=== PATIENT | male | born 1990 | race Caucasian/White ===

== ENCOUNTER 2017-07-12 08:17 | Outpatient (CLI) | payer BC ==
[2017-07-12 09:23] LABS: #Lymphocytes 1.7 thou/uL (1.20-3.40); #Monocytes 0.9 thou/uL (0.11-0.59); #Neutrophils 6.2 thou/uL (1.40-6.50); %Basophils 0.2 % (0.0-1.0); %Eosinophils 0.4 % (0.0-10.0); %Lymphocytes 19.4 % (21.0-51.0); %Monocytes 10.3 % (0.0-10.0); %Neutrophils 69.7 % (42.0-75.0); Hemoglobin 15.8 g/dL (14.0-18.0); Mean Corpuscular HGB CONC 33.8 g/dL (32.0-36.0); Mean Corpuscular Hemoglobin 30.9 pg (27.0-31.0); Mean Corpuscular Volume 91.3 fl (80.0-94.0); Mean Platelet Volume 8.7 fL (7.4-10.4); Platelet Count 217 thou/uL (130-400); RBC Distribution Width 11.8 % (11.5-14.5); White Blood Cell (WBC) Count 8.9 thou/uL (4.8-10.8)
[2017-07-12 09:39] LABS: Anion Gap 14 mmol/L (10-20); BUN (Urea Nitrogen) 15 mg/dL (8.9-20.6); Calc. Creatinine Clearance 0 mL/min (70-130); Carbon Dioxide 22 mmol/L (22-29); Chloride 106 mmol/L (98-107); Estimated GFR-MDRD Greater than 90; Glucose 122 mg/dL (70-105); Potassium 3.8 mmol/L (3.5-5.1); Sodium 138 mmol/L (136-145)
== END 2017-07-12 08:18 | disposition home or self-care (01) ==
LOC: LABBT 08:17
PROVIDERS: ATTEND Surgery
DX: Z01.812 Encounter for preprocedural laboratory examination (principal); K43.9 Ventral hernia without obstruction or gangrene
CPT/HCPCS: 80048; 85025

== ENCOUNTER 2017-07-20 09:57 | Day surgery (SDC) | payer BC ==
[2017-07-12 08:45] VITALS: BMI 36.8
[2017-07-20] MEDS ORDERED: Ondansetron HCl/PF 4 MG/2 ML Vial ONE ×2 (10:28→14:54)
[2017-07-20] MEDS ORDERED: Fentanyl 100 MCG/2 ML VIAL ONE ×4 (10:28→15:02)
[2017-07-20] MEDS ORDERED: Midazolam HCl 2 mg/2 ml Vial ONE (10:28)
[2017-07-20] MEDS ORDERED: Lidocaine 2% Jelly 5 ML TUBE ONE (10:49)
[2017-07-20] MEDS ORDERED: Bupivacaine/Epinephrine 0.25% 30 ML VIAL ONE (11:39)
[2017-07-20] MEDS ORDERED: CEFAZOLIN/Water 2 GM/20 ML SYRINGE ONE (11:43)
[2017-07-20] MEDS ORDERED: Meperidine HCl/PF 25 MG/ML VIAL ONE (14:09)
[2017-07-20] MEDS ORDERED: Glycopyrrolate 0.2 MG/ML 5 ML SYRINGE ONE (14:54)
[2017-07-20] MEDS ORDERED: Lidocaine 1% PF 5 ML VIAL ONE (14:54)
[2017-07-20] MEDS ORDERED: PROPOFOL 200 MG/20 ML VIAL ONE (14:54)
[2017-07-20] MEDS ORDERED: Dexamethasone 20 MG/5 ML VIAL ONE (14:54)
[2017-07-20] MEDS ORDERED: Meperidine HCl/PF 25 MG/ML VIAL IV PRN (15:08)
[2017-07-20] MEDS ORDERED: Non-Formulary Medication 1 EACH PO PRN (15:08)
[2017-07-20] MEDS ORDERED: Promethazine HCl 25 MG/ML VIAL IM/IV PRN (15:08)
[2017-07-20] MEDS ORDERED: Ondansetron HCl/PF 4 MG/2 ML Vial IVP PRN (15:08)
--- NOTE | 2017-07-20 18:26 | OP ---
DATE OF PROCEDURE: 07/20/2017 PREOPERATIVE DIAGNOSIS: Ventral hernia. POSTOPERATIVE DIAGNOSIS: Ventral hernia. PROCEDURE PERFORMED: Da Greta laparoscopic ventral hernia repair with mesh, [address] SURGEON: Ehsan Linares M.D. ANESTHESIA: General. ESTIMATED BLOOD LOSS: Minimal. COMPLICATIONS: None. TECHNIQUE: The patient was taken to the operating room and placed supine on the table. After genera l anesthetic was obtained, the Fontaine catheter was placed, the abdomen was shaved, prepped and draped in a sterile fashion. Left subcostal 5-mm Optiview trocar was placed in the usual fashion and high-f low pneumoperitoneum was obtained. Left and right upper abdominal 8-mm robot trocars were placed. T he 5-mm trocar was replaced to an 11-mm long balloon applied medical trocar. All ports were docked t o the robot. Surgeon goes to the console. An 8-cm round Ventralight mesh with the nonadherence side labeled using the skin marker was rolled after moistened and placed into the abdominal cavity. Ther e were some omental adhesions to the ventral hernia that were taken down sharply and with cautery. T he falciform ligament was taken superiorly in order for mesh placement. The posterior peritoneum was opened, exposing the posterior fascia circumferentially around the defect, 0 V-Loc is used to close the defect primarily in a transverse fashion. A bite was obtained of the posterior umbilical skin in order to pull it back down again. The needle for this suture was left in the abdomen. The previous ly cut mesh and labeled was placed up against the posterior abdominal wall. The mesh side was placed against the posterior fascia. The nonadherence side was left on the inferior aspect. This mesh was held and centered over the closure using the needle for the fascial closure. A 3-0 V-Loc is used to affix the mesh to the posterior fascia, starting at the 3 o'clock position and sewn circumferentiall y, two 3-0 V-Loc were used to do this. The sutures were overlapped at their ends and then cut. All three needles were removed from the abdomen. No injury to any intraabdominal structures. All port s ites were infiltrated using local anesthetic and removed under direct visualization without bleeding. Pneumoperitoneum was let down. The incisions were closed using 4-0 Monocryl and Dermabond. The pa tient was en route to recovery in stable condition. All instrument counts, needle counts and lap cou nts were correct.
== END 2017-07-20 17:23 | disposition home or self-care (01) ==
LOC: SDC 09:57
PROVIDERS: ATTEND Surgery
PROC: 0WUF4JZ Supplement Abdominal Wall with Synthetic Substitute, Percutaneous Endoscopic Approach (ICD-10-PCS; principal; 2017-07-20)
DX: K43.9 Ventral hernia without obstruction or gangrene (principal); J45.909 Unspecified asthma, uncomplicated; F17.210 Nicotine dependence, cigarettes, uncomplicated; Z79.51 Long term (current) use of inhaled steroids; Z79.52 Long term (current) use of systemic steroids; Z79.899 Other long term (current) drug therapy
CPT/HCPCS: 96374; C1781; J0131; J1100; J2001; J2175; J2250; J2405; J2704; J3010; J7620

== ENCOUNTER 2022-01-15 12:56 | Emergency (ER) | payer OTHER, SELFPAY | END 2022-01-15 13:42 | disposition home or self-care (01) | LOC: ERS 12:56 | DX: J45.901 Unspecified asthma with (acute) exacerbation (principal); J01.90 Acute sinusitis, unspecified; J06.9 Acute upper respiratory infection, unspecified | CPT/HCPCS: 99284 ==

== ENCOUNTER 2022-02-26 12:57 | Emergency (ER) | payer SELFPAY | END 2022-02-26 14:30 | disposition home or self-care (01) | LOC: ERS 12:57 | DX: J02.0 Streptococcal pharyngitis (principal) | CPT/HCPCS: 87081; 87430; 87804; 99283 ==